=== PATIENT | male | born 1970 | race Hispanic/Latino ===

== ENCOUNTER 2018-08-13 21:28 | Emergency (ER) | payer BC ==
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
[2018-08-13] MEDS ORDERED: IBUPROFEN 200 MG TAB PO ONE (23:54)
[2018-08-13] MEDS ORDERED: HYDROCODONE/APAP 10/325 TAB ONE (23:55)
[2018-08-13] MEDS ORDERED: IBUPROFEN 400 MG TAB ONE (23:55)
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
== END 2018-08-14 00:32 | disposition home or self-care (01) ==
LOC: ER 21:28
DX: S46.012A Strain of muscle(s) and tendon(s) of the rotator cuff of left shoulder, initial encounter (principal); S40.012A Contusion of left shoulder, initial encounter; V49.40XA Driver injured in collision with unspecified motor vehicles in traffic accident, initial encounter; I10 Essential (primary) hypertension; E11.9 Type 2 diabetes mellitus without complications; E78.00 Pure hypercholesterolemia, unspecified
CPT/HCPCS: 99283